=== PATIENT | male | born 1980 | race Caucasian/White ===

== ENCOUNTER 2017-01-24 15:09 | Emergency (ER) | payer OTHER ==
[2017-01-24] MEDS ORDERED: BACTRIM DS TAB1 EAC2 PO (16:06)
[2017-01-24] MEDS ORDERED: ZOLOFT100 M1 PO (16:07)
[2017-01-24] MEDS ORDERED: ULTRAM50 M1 PO (16:07)
[2017-01-24] MEDS ORDERED: CYCLOBENZAPRINE5 M1 PO (16:07)
[2017-01-24] MEDS ORDERED: [UNRECOGNIZED DRUG - OTHER] PO (16:08)
[2017-01-24 17:13] LABS: URINE BILIRUBIN NEGATIVE (NEG); URINE BLOOD SMALL (NEG); URINE GLUCOSE (UA) NEGATIVE (NEG); URINE KETONE NEGATIVE (NEG); URINE LEUKOCYTE ESTERASE NEGATIVE (NEG); URINE NITRITE NEGATIVE (NEG); URINE PROTEIN NEGATIVE (NEG)
[2017-01-24 17:14] LABS: URINE APPEARANCE HAZY; URINE COLOR PALE YELLOW
[2017-01-24 17:21] LABS: URINE EPITHELIAL CELLS 0 /[HPF] (0-10); URINE WBC 0 /[HPF] (0-5)
[2017-01-24 17:28] LABS: BASO ABSOLUTE COUNT 0.1 tho/cmm (0.0-0.2); EOS % 3.7 % (0-7); EOSINOPHIL ABSOLUTE COUNT 0.3 tho/cmm (0.0-0.7); HCT-HEMATOCRIT 48.7 % (36.0-53.5); HGB-HEMOGLOBIN 16.6 gm/dl (13.5-17.0); IMMATURE GRANULOCYTES ABSOLUTE 0.01 tho/cmm (0-0.03); IMMATURE GRANULOCYTES PERCENT 0.1 % (0-0.3); LYMPH % 35.3 % (20-45); LYMPH ABSOLUTE COUNT 2.4 tho/cmm (0.8-4.5); MCH (MEAN CORPUSCULAR HGB) 29.5 pg (28.0-32.0); MCHC MEAN CORPUSCULAR HGB CONC 34.1 % (32.0-36.0); MCV (MEAN CELL VOLUME) 86.7 fl (82.0-96.0); MEAN PLATELET VOLUME 9.6 cmc (9.4-12.4); MONO % 7.4 % (0-12); MONOCYTE ABSOLUTE COUNT 0.5 tho/cmm (0.0-1.2); NEUTROPHIL ABSOLUTE COUNT 3.5 tho/cmm (1.6-8.0); NEUTROPHIL-AUTOMATED 3.5 tho/cmm (1.6-8.0); NEUTROPHILS % 52.5 % (40-80); PLATELET COUNT 228 tho/cmm (150-450); RED BLOOD COUNT 5.62 mil/cmm (4.40-5.70); WHITE BLOOD COUNT 6.7 tho/cmm (4.0-10.0)
[2017-01-24 17:40] LABS: ANION GAP 13 mmol/L (0-20); BLOOD UREA NITROGEN 14 mg/dl (6-24); CALCIUM 8.5 mg/dl (8.5-10.5); CARBON DIOXIDE-VENOUS 27 mmol/L (22-32); CHLORIDE 102 mmol/l (96-110); CREATININE 1.29 mg/dl (0.60-1.30); GLUCOSE 87 mg/dL (70-110); POTASSIUM 4.3 mmol/L (3.7-5.1); SODIUM 138 mmol/L (135-145); eGFR VALUE FOR BLACK 83 mL/Min
[2017-01-24] MEDS ORDERED: CIPRO500 M2 PO (18:12)
[2017-01-24] MEDS ORDERED: FLOMAX0.4 M1 PO (18:12)
== END 2017-01-24 18:24 ==
LOC: EDMED 15:09
PROVIDERS: Emergency Medicine
PROC: 4A0D7BZ Measurement of Urinary Pressure, Via Natural or Artificial Opening (ICD-10-PCS; principal; 2017-01-24)
DX: N41.9 Inflammatory disease of prostate, unspecified (principal); R31.29 Other microscopic hematuria; R33.9 Retention of urine, unspecified; F43.10 Post-traumatic stress disorder, unspecified; F41.9 Anxiety disorder, unspecified; F32.9 Major depressive disorder, single episode, unspecified; Z90.49 Acquired absence of other specified parts of digestive tract